=== PATIENT | male | born 1985 | race Caucasian/White ===

== ENCOUNTER 2018-08-01 13:58 | Observation (INO) | payer BC ==
[2018-08-01] MEDS ORDERED: Dexamethasone 10 MG/ML VIAL ONE (14:10)
[2018-08-01] MEDS ORDERED: Famotidine/PF 20 mg/2ml Vial ONE (15:21)
[2018-08-01] MEDS ORDERED: SODIUM CHLORIDE 0.9% IVPB SCH (15:45)
[2018-08-01] MEDS ORDERED: FAMOTIDINE IVPB SCH (15:45)
[2018-08-01] MEDS ORDERED: diphenhydrAMINE 50 MG/ML VIAL IVP PRN (15:51)
[2018-08-01 17:38] VITALS: BMI 30.7
[2018-08-01 17:58] LABS: #Lymphocytes 0.9 thou/uL (1.20-3.40); #Monocytes 0.7 thou/uL (0.11-0.59); #Neutrophils 9.1 thou/uL (1.40-6.50); %Basophils 0.3 % (0.0-1.0); %Eosinophils 0.4 % (0.0-10.0); %Monocytes 6.7 % (0.0-10.0); %Neutrophils 84.5 % (42.0-75.0); Hemoglobin 16.2 g/dL (14.0-18.0); Mean Corpuscular HGB CONC 34.6 g/dL (32.0-36.0); Mean Corpuscular Hemoglobin 32.2 pg (27.0-31.0); Mean Corpuscular Volume 93.1 fL (78.0-98.0); Mean Platelet Volume 7.9 fL (7.4-10.4); Platelet Count 232 thou/uL (130-400); RBC Distribution Width 11.3 % (11.5-14.5); Red Blood Cell (RBC) Count 5.04 mill/uL (4.70-6.10); White Blood Cell (WBC) Count 10.7 thou/uL (4.8-10.8)
[2018-08-01 18:19] LABS: Anion Gap 11 mmol/L (10-20); BUN (Urea Nitrogen) 13 mg/dL (8.9-20.6); Calc. Creatinine Clearance 139 mL/min (70-130); Calcium 9.1 mg/dL (7.8-10.44); Carbon Dioxide 24 mmol/L (22-29); Chloride 108 mmol/L (98-107); Estimated GFR-MDRD 88; Glucose 95 mg/dL (70-105); Potassium 4.1 mmol/L (3.5-5.1); Sodium 139 mmol/L (136-145)
[2018-08-01] MEDS: Famotidine 20 MG TAB PO SCH (21:29)
[2018-08-01] MEDS ORDERED: Carvedilol 6.25 MG TAB PO SCH (21:30)
--- NOTE | 2018-08-02 04:14 | HP ---
CHIEF COMPLAINT: Anaphylactic reaction. HISTORY: This patient is a 32-year-old male, who reports a history of having hives and allergic reaction since he was 12 years old. The patient states that at one point he did have some allergy testing, but no significant findings were noted. 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 When he had his typical reaction, primarily being itching that started to occur in his lower extremities, followed by generalized pruritus and urticaria. The patient reports he had an EpiPen that had been instituted to him by his company and he used it. By his description, he was appropriately educated on the use of the pen and used it correctly. 911 was called, then upon Paramedics arrival, they thought the patient was still having some issues and administered 0.3 of epinephrine as well. The patient reports that he did have some associated shortness of breath and wheezing. After he took the initial EpiPen, he states he felt lightheaded, then became what he describes as a bright light sensation and he believes he may even passed out for about 10 seconds. After the second epinephrine shot, the patient reports that he had severe pain all over his body, but all of that completely resolved and he feels completely at his baseline at this time. The patient did receive steroids and Benadryl in the emergency department. ROS: All systems reviewed and all pertinent positives and negatives are noted in the HPI. PAST MEDICAL HISTORY: Notable for hypertension, hyperlipidemia, kidney stones, and diverticulitis. FAMILY HISTORY: Reviewed, noncontributory. PAST SURGICAL HISTORY: Includes a stone retrieval with laser. SOCIAL HISTORY: The patient smokes 6 to 7 cigarettes per day. He dips one can of snuff per day. He drinks 2 to 3 beers per day. He is , but going through a divorce. His surrogate decision maker would be his current fiancee, Rosita Riggs. He is a [employer]. ALLERGIES: PENICILLIN AND SULFA. MEDICATIONS: 1. Carvedilol SR 20 mg daily. 2. Ranitidine 150 mg daily. PHYSICAL EXAMINATION: GENERAL APPEARANCE: Age-appropriate male, he is in no distress. He is awake, alert, oriented, pleasant, and cooperative. HEENT: PERRL. No OP lesions. TMs were normal. NECK: Supple and symmetric. HEART: Regular rate and rhythm without murmurs, gallops, or rubs. LUNGS: Clear to auscultation bilaterally with no wheezes or rales. ABDOMEN: Soft, nontender, and nondistended. Positive bowel sounds. No masses. No organomegaly. EXTREMITIES: Warm and dry. SKIN: Reveal no evidence of urticaria or lesions. IMPRESSION AND PLAN: 1. Anaphylactic reaction to unknown allergen. The patient received epinephrine and subsequently received a second dose of epinephrine from Paramedics. He is completely at his baseline presently. He will be observed overnight. We will prescribe p.r.n. Benadryl and H2 antagonist. 2. Hypertension. We will continue his Coreg with short-acting counterpart. Job ID: [id number] [facility]
[2018-08-02 07:47] VITALS: TEMP 98.4
[2018-08-02] MEDS ORDERED: Carvedilol 6.25 MG TAB PO SCH (09:00)
[2018-08-02] MEDS ORDERED: predniSONE 20 MG TAB PO SCH (09:00)
[2018-08-02] MEDS: Famotidine 20 MG TAB PO SCH (09:49)
[2018-08-02 09:50] VITALS: BP 122/64
--- NOTE | 2018-08-03 17:23 | DIS ---
DATE OF ADMISSION: 08/01/2018 DATE OF DISCHARGE: 08/02/2018 PRIMARY CARE PHYSICIAN: None. The patient is instructed to follow up with [facility] or [facility], if the need arises. DISCHARGE MEDICATIONS: Epinephrine, EpiPen 0.3 mg IM as needed for anaphylaxis. Resume home medication, carvedilol 6.25 mg p.o. b.i.d. and ranitidine 150 mg p.o. daily. He is instructed to take Benadryl oral as needed 25 mg every 6 hours, if his symptoms of urticaria or allergic reaction return. DISCHARGE DIAGNOSES: 1. Anaphylaxis due to unknown allergen. 2. Hypertension. 3. Dyslipidemia. 4. History of kidney stone and diverticulitis. HISTORY OF PRESENTING ILLNESS: Mr. Gomez is a very pleasant 32-year-old male with past medical history as outlined above, who presented with shortness of breath, throat swelling and wheezing due to an unknown allergen while at workplace. He was given epinephrine twice and was brought into the emergency room, where he received Decadron, Benadryl, as well as Pepcid for anaphylactic reactions and his symptoms resolved. He was admitted for observation overnight. HOSPITAL COURSE: The patient had no significant symptoms throughout his hospitalization and remained stable. As of this morning, his symptoms have not returned and he is back to baseline, so he will be discharged. I encouraged him to follow up with an turf farm worker to get some allergy testing as his symptoms sound secondary to allergic anaphylaxis with urticaria. He is given prescription for EpiPen in case this happens again. Discharge plan was discussed with the patient and his significant other, who verbalized understanding. I have seen and examined the patient prior to discharge. PHYSICAL EXAMINATION: This morning, VITAL SIGNS: Temperature 98.4, heart rate 97, blood pressure 122/67, and saturating 97% on room air. GENERAL: No acute distress. Awake, alert, and oriented x3. HEENT: No oropharyngeal exudate or erythema. There is no swelling of the posterior pharynx, throat, or tongue. CHEST: Clear to auscultation without any wheezes. HEART: Rate rhythm is regular. The patient will be discharged home and is encouraged to follow up with an turf farm worker and set up a primary care physician's office. 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 Job ID: [id number]
== END 2018-08-02 11:47 | disposition home or self-care (01) ==
LOC: ERS 13:58 → ERHOLD 15:30 → 2SW 17:04
PROVIDERS: ADMIT Internal Medicine; ATTEND Internal Medicine
DX: T78.2XXA Anaphylactic shock, unspecified, initial encounter (principal); I10 Essential (primary) hypertension; E78.5 Hyperlipidemia, unspecified; F17.210 Nicotine dependence, cigarettes, uncomplicated; F17.290 Nicotine dependence, other tobacco product, uncomplicated; Z79.899 Other long term (current) drug therapy; Z88.0 Allergy status to penicillin; Z88.2 Allergy status to sulfonamides
CPT/HCPCS: 36415; 80048; 85025; 90471; 90686; 90732; 96361; 96365; G0008; G0009; G0378; J1100; J7050; S0028